=== PATIENT | male | born 1945 | race Caucasian/White ===

== ENCOUNTER 2018-07-18 09:17 | Emergency (ER) | payer MEDICARE ==
[2018-07-18] MEDS ORDERED: predniSONE 10 MG Tab ONE (10:20)
[2018-07-18] MEDS ORDERED: Azithromycin 250 MG Tab ONE (10:20)
[2018-07-18] MEDS: cefTRIAXone 1 GM Vial IM ONE (10:42)
[2018-07-18] MEDS: methylPREDNISolone Sodium Succinate 125 MG/2 ML SDV IM ONE (10:46)
--- NOTE | 2018-07-18 14:19 | CT ---
DATE OF SERVICE: 07/18/2018 CLINICAL DATA: Left neck swelling. UNENHANCED NECK CT: Multislice acquisition through the neck without IV contrast was performed. There is an oval shaped mixed density structure adjacent to the left palatine tonsil. It does produce mass effect on the oropharynx with slight narrowing of the airway. It is consistent with in appearance with a peritonsillar abscess. There is mucosal thickening in the ethmoid and maxillary sinuses consistent with chronic sinusitis. No air-fluid levels. The parotid glands are symmetric and appear normal. The submandibular glands are symmetric and appear normal. There is soft tissue swelling of the uvula. The epiglottis appears normal. There are nonspecific deep cervical and submandibular nodes. These are probably reactive. There are multiple low density foci within both lobes of the thyroid. Thyroid ultrasound is recommended. IMPRESSION: Mixed density mass adjacent to the left palatine tonsil. This probably represents a peritonsillar abscess. The possibility of tumor should also be considered. ENT consultation is recommended. Other findings as discussed above. Abnormal thyroid. Thyroid ultrasound is recommended. [id number] [facility]
--- NOTE | 2018-07-18 19:35 | ER ---
HISTORY OF PRESENT ILLNESS: A 73-year-old male here with complaints of pain and swelling in his throat. The patient tells me that he has had this for a few days. He was seen previously before coming up to this area on a fishing trip and was put on amoxicillin. He has taken it for 4 days. He does not feel it is helping at all. He feels the swelling is slowly getting worse. He states that when he swallows the food at times, it is a little bit uncomfortable. The patient denies any problems with shortness of breath or wheezing, and he has not been running a fever to his knowledge. He states he otherwise feels fine. OBJECTIVE: GENERAL APPEARANCE: The patient is awake and alert. No respiratory distress. VITAL SIGNS: Reviewed. He is afebrile. Blood pressure 169/74, respirations 20, O2 sats are 98% on room air. PHYSICAL EXAM: Ears, TMs are dull, otherwise normal. Examining the patient's face reveals mild swelling on the posterior aspect of the left facial cheek and going down into the neck slightly. Oral mucous membranes are moist. There is swelling on the left side of the posterior pharynx involving the left tonsil that is fairly significant that I do not see any injection, and the right tonsil is small in size. NECK: Supple with tender cervical lymphadenopathy on the left side. LUNGS: Clear. CARDIAC: Heart sounds distinct. SKIN: Warm and dry. LABS AND X-RAY: CT of the soft tissues of the neck shows a 3 x 2.4 cm soft tissue lesion centered near the left palatine tonsil causing rightward mass effect on the oropharynx with mild narrowing of the oropharynx. No definite fluid collection to suggest a tonsillar abscess. Recommendations are to correlate with direct visualization and possibly tissue sampling. Lab work done today is none. DIAGNOSIS: Soft tissue lesion in the pharynx in the area of the left tonsil. TREATMENT PLAN: We monitored the patient's vital signs and his blood pressure came down with a reading of 143/75. The last reading was 150/92. The patient is able to take liquids well without any discomfort. At this point, we will give him Solu-Medrol 125 mg IM and Rocephin 1 g IM. The patient will be started on oral prednisone tomorrow, and he will be started on Z-Karson. He is to stick to a soft diet and push fluids. If his symptoms do not improve within 24 hours, he needs to be seen again. He plans on being here another 2 or 3 days and then going home if his symptoms improve. This would be reasonable. He can wait until he gets home for followup. If his condition does not improve or gets worse at all, he is to have one of his fishing buddies drive him back to the emergency room as needed and for further evaluation at that time. The patient is comfortable with the treatment plan and has no further questions. CRS/MODL /[id number]
== END 2018-07-18 11:10 | disposition home or self-care (01) ==
LOC: LB.ED 09:17
DX: J39.2 Other diseases of pharynx (principal)
CPT/HCPCS: 70490; 96372; 99283; A9270; J0696; J2930